=== PATIENT | female | born 1980 | race Two or more races ===

== ENCOUNTER 2020-04-12 11:25 | Outpatient (CLI) | payer OTHER | END 2020-04-12 11:46 | disposition home or self-care (01) | LOC: SONOGRAMA 11:25 | PROVIDERS: ATTEND Obstetrics & Gynecology Reproductive Endocrinology | DX: N93.8 Other specified abnormal uterine and vaginal bleeding (principal) ==

== ENCOUNTER 2021-06-20 08:27 | Day surgery (SDC) | payer OTHER ==
[~2021-06-20 08:27] MED LIST: FLEXERIL PO; GABAPENTIN800 MG; IBU800 MG PO; MAGESTROL PO; SYNTHROID125 MCG PO
== END 2021-06-20 17:35 | disposition home or self-care (01) ==
LOC: CIR.AMB 08:27
PROVIDERS: ATTEND Obstetrics & Gynecology
DX: N85.01 Benign endometrial hyperplasia (principal); Z20.822 Contact with and (suspected) exposure to COVID-19